=== PATIENT | male | born 1995 | race Caucasian/White ===

== ENCOUNTER 2019-05-05 11:32 | Emergency (ER) | payer SELFPAY ==
[~2019-05-05] VITALS: Ht 185.4 cm; Wt 82.1 kg
[2019-05-05 11:37] VITALS: BP 122/76
--- NOTE | 2019-05-05 11:37 | NUR ---
PATIENT AMBULATED WITH STEADY GAIT TO BED 4.
--- NOTE | 2019-05-05 11:53 | NUR ---
c/o fever on and off x 1 week, reports this am he voided dark red blood x 1 episode, also c/o dysuria. no pain unless he is urinating. denies discharge or itching. pt states he has been taking tylenol for fever prn. afebrile at this time. vs stable, pt alert and awake, ambulatory with steady gait. hx denies
--- NOTE | 2019-05-05 12:00 | NUR ---
Patient being evaluated by physician at bedside.
[2019-05-05 12:22] LABS: BASOPHILS # (AUTO) 0.1 K/uL (0.00-0.22); BASOPHILS % (AUTO) 0.4 % (0.0-2.0); EOSINOPHILS % (AUTO) 0.2 % (0.0-4.0); HEMATOCRIT 46.7 % (36-52); HEMOGLOBIN 15.7 g/dL (12.0-18.0); LYMPHOCYTES % (AUTO) 13.7 % (20.5-51.1); MEAN CORPUSCULAR HEMOGLOBIN 30 pg (27-31); MEAN CORPUSCULAR HGB CONC 34 g/dL (33-37); MEAN CORPUSCULAR VOLUME 90.8 fL (80-94); MONOCYTES # (AUTO) 1.8 K/uL (0.8-1.0); MONOCYTES % (AUTO) 12.2 % (1.7-9.3); NEUTROPHILS # (AUTO) 10.6 K/uL (1.8-7.7); NEUTROPHILS % (AUTO) 73.5 % (42.2-75.2); PLATELET COUNT (AUTO) 278 K/uL (140-450); RED BLOOD CELL COUNT(AUTO) 5.15 MIL/uL (4.20-6.10); RED CELL DISTRIBUTION WIDTH 12.3 % (11.6-13.7); WHITE BLOOD COUNT (AUTO) 14.5 K/uL (4.8-10.8)
[2019-05-05 12:24] LABS: BILIRUBIN,URINE 1+ (NEGATIVE); BLOOD, URINE 2+ (NEGATIVE); COLOR,URINE YELLOW (YELLOW); NITRITE, URINE NEGATIVE (NEGATIVE); UGLUCOSE NEGATIVE (NEGATIVE)
[2019-05-05 12:27] LABS: ANION GAP 14.8 (8-16); CARBON DIOXIDE 29.3 mmol/L (21-32); POTASSIUM 4.1 mmol/L (3.5-5.1)
[2019-05-05 12:32] LABS: APPEARANCE,URINE SLIGHTLY HAZY (CLEAR)
[2019-05-05 12:37] LABS: LEUKOCYTE ESTERASE ,URINE 1+ (NEGATIVE)
[2019-05-05] MEDS ORDERED: CEPHALEXIN 500 MG CAP PO ONE (13:15)
[2019-05-05 13:32] VITALS: BP 117/78
--- NOTE | 2019-05-05 13:32 | NUR ---
Patient discharged with v/s stable. Written and verbal after care instructions given and explained REGARDING HEMATURIA AND UTI. Patient alert, oriented and verbalized understanding of instructions. Ambulatory with steady gait. All questions addressed prior to discharge. ID band removed. Patient advised to follow up with PMD. Rx of KEFLEX AND PYRIDIUM given. Patient educated on indication of medication including possible reaction and side effects. Opportunity to ask questions provided and answered. INSTRUCTED PT TO TAKE OTC TYLENOL AND MOTRIN PRN FEVER AND PAIN INSTRUCTED THAT PYRIDIUM WILL TURN URINE THADDEUS/RED, NORMAL.
--- NOTE | 2019-05-05 13:32 | NUR ---
PT REFUSED PO MED, STATES HE WILL TAKE PRESCRIPTION
== END 2019-05-05 13:32 | disposition home or self-care (01) ==
LOC: MED 11:32
DX: N39.0 Urinary tract infection, site not specified (principal); R31.9 Hematuria, unspecified; F17.210 Nicotine dependence, cigarettes, uncomplicated; R51 Headache; Z71.6 Tobacco abuse counseling
CPT/HCPCS: 36415; 80048; 81001; 85025; 87086; 87186; 99283

== ENCOUNTER 2019-05-06 09:07 | Emergency (ER) | payer SELFPAY ==
[~2019-05-06] VITALS: Ht 188 cm; Wt 80.3 kg
[2019-05-06 09:13] VITALS: BP 127/68
--- NOTE | 2019-05-06 09:20 | NUR ---
PATIENT AMBULATED WITH STEADY GAIT TO BED 12.
--- NOTE | 2019-05-06 09:26 | NUR ---
PT WAS SEEN AT [facility] YESTERDA AND SENT HOME WITH UTI/ABX AND IS RETURNING TODAY BECAUSE THE PAIN IS "A LOT WORSE" 02/11. PT HAS NOT FILLED PRESCRIPTION YET. PT REPORTS DYSURIA, HEMATURIA & SUBJECTIVE FEVER. AFEBRILE AT THIS TIME.. DENIES N/V/D; SKIN IS PINK/WARM/DRY; AAOX4 WITH EVEN AND STEADY GAIT; LUNGS CLEAR BL; HR EVEN AND REGULAR; PT DENIES ANY FEVER, CP, SOB, OR COUGH AT THIS TIME; PATIENT STATES PAIN OF 10/10 AT THIS TIME; VSS; PATIENT POSITIONED FOR COMFORT; HOB ELEVATED; BEDRAILS UP X2; BED DOWN. ER MD MADE AWARE OF PT STATUS. OFFERED PT URINE AMPLE CUP, PT STATED HE DOES NOT HAVE URINE YET,OFFERED WATER TO PT.
[2019-05-06] MEDS ORDERED: KETOROLAC 60 MG/2 ML VIAL IM ONE (09:30)
[2019-05-06] MEDS ORDERED: AZITHROMYCIN 250 MG TAB PO ONE (09:30)
[2019-05-06] MEDS ORDERED: cefTRIAXone 250 MG in LIDOCAINE MPF 1% 0.9 ML IM ONE (09:30)
[2019-05-06] MEDS ORDERED: cefTRIAXone 250 MG VIAL ONE (09:50)
[2019-05-06] MEDS ORDERED: LIDOCAINE MPF 1% 5 ML ONE (09:50)
[2019-05-06 10:35] VITALS: BP 125/68
--- NOTE | 2019-05-06 10:36 | NUR ---
Patient discharged with v/s stable. Written and verbal after care instructions given and explained. Patient alert, oriented and verbalized understanding of instructions. Ambulatory with steady gait. All questions addressed prior to discharge. ID band removed. Patient advised to follow up with PMD. Rx of MOTRIN AND NORCO given. ALSO TOLD PT TO CONTINUE ABX WHICH WAS PRESCRIBED YESTERDAY. Patient educated on indication of medication including possible reaction and side effects. Opportunity to ask questions provided and answered.
[2019-05-08 06:07] LABS: CHLAMYDIA TRACHOMATIS AMP DNA Negative (Negative)
== END 2019-05-06 10:36 | disposition home or self-care (01) ==
LOC: MED 09:07
DX: N45.1 Epididymitis (principal); R30.0 Dysuria; F12.10 Cannabis abuse, uncomplicated
CPT/HCPCS: 36415; 87491; 99283; J0696; J1885; J2001